=== PATIENT | male | born 1975 | race Caucasian/White ===

== ENCOUNTER 2021-02-26 17:11 | Emergency (ER) | payer MEDICAID ==
[~2021-02-26] VITALS: Ht 177.8 cm; Wt 165.6 kg
[2021-02-26 17:11] VITALS: BP 136/72
--- NOTE | 2021-02-26 17:11 | NUR ---
BIB from home, patient at rest with SVT. Presents cool/clammy/diaphoretic in SVT @ HR 235. Patient given 3 rounds of Adenosine, [id number]-48sd without relief to SVT. EMS reports withholding cardioversion due to BP 131/76. 18G established to L AC. Defibrillator pads applied. EMT at bedside for EKG. 20G established to right AC. gambling monitor in place. IVF NS continued to L AC. PMH: SVT, HTN, PR 2 months ago, DM Meds: metformin, lisinopril NKA
--- NOTE | 2021-02-26 17:11 | NUR ---
Dr. Delaney is evaluating patient at bedside. Crash cart and advanced airway equipment at bedside
--- NOTE | 2021-02-26 17:17 | NUR ---
Rt at bedside, verbal order for 3L by N/C, SpO2 99% unchanged.
[2021-02-26] MEDS ORDERED: INTUBATION KIT MC ONE (17:23)
--- NOTE | 2021-02-26 17:25 | NUR ---
Verbal order for Adenosine 12mg IVP. Admin by 3-way stopcock rapid IVP followed by 10mL NS flush. No change to cardiac rhythm
--- NOTE | 2021-02-26 17:27 | NUR ---
Verbal order to RT to increase oxygen from 3L to 10L by NC. SpO2 99% unchanged.
--- NOTE | 2021-02-26 17:28 | NUR ---
Etomidate 10mg IVP administered.
--- NOTE | 2021-02-26 17:30 | NUR ---
Cardioversion @ 200J by Dr. Delaney
--- NOTE | 2021-02-26 17:31 | NUR ---
Cardiac rhythm showing NSR @ 97. EMT at bedside for repeat EKG
--- NOTE | 2021-02-26 17:36 | NUR ---
1L NS 0.9% by EMS completed
--- NOTE | 2021-02-26 17:36 | NUR ---
Patient awake at this time. A&Ox4, denies any pain.
--- NOTE | 2021-02-26 17:54 | NUR ---
RAD AT BEDSIDE
--- NOTE | 2021-02-26 18:00 | NUR ---
Bena provided. Patient presents without chest pain or SOB at this time. BP 102/63 Spo2 96% on room air HR 107, RR 16
--- NOTE | 2021-02-26 18:05 | NUR ---
Patient resting in high-fowlers in no distress. VSS; respirations even/unlabored. Bed locked in lowest position, side rails x 1, call light in reach.
[2021-02-26 18:08] LABS: BASOPHILS % (AUTO) 0.5 % (0.0-2.0); EOSINOPHILS # (AUTO) 0.5 K/uL (0-0.4); EOSINOPHILS % (AUTO) 5.8 % (0.0-4.0); HEMATOCRIT 45.2 % (36-52); HEMOGLOBIN 15.2 g/dL (12.0-18.0); LYMPHOCYTES # (AUTO) 1.6 K/uL (2.0-11.5); LYMPHOCYTES % (AUTO) 19.7 % (20.5-51.1); MEAN CORPUSCULAR HEMOGLOBIN 29 pg (27-31); MEAN CORPUSCULAR HGB CONC 34 g/dL (33-37); MEAN CORPUSCULAR VOLUME 86.1 fL (80-94); MONOCYTES # (AUTO) 0.8 K/uL (0.8-1.0); MONOCYTES % (AUTO) 9.8 % (1.7-9.3); NEUTROPHILS # (AUTO) 5.3 K/uL (1.8-7.7); NEUTROPHILS % (AUTO) 64.2 % (42.2-75.2); PLATELET COUNT (AUTO) 211 K/uL (140-450); RED BLOOD CELL COUNT(AUTO) 5.25 MIL/uL (4.20-6.10); RED CELL DISTRIBUTION WIDTH 15.9 % (11.6-13.7); WHITE BLOOD COUNT (AUTO) 8.2 K/uL (4.8-10.8)
[2021-02-26 18:27] LABS: ALBUMIN 3.3 g/dL (3.4-5.0); ANION GAP 12.3 (8-16); CARBON DIOXIDE 26.5 mmol/L (21-32); CREATININE 1.2 mg/dL (0.6-1.3); POTASSIUM 3.8 mmol/L (3.5-5.1); TOTAL BILIRUBIN 0.4 mg/dL (0.0-1.0)
[2021-02-26] MEDS ORDERED: METOPROLOL SUCCINATE 50 MG TABER PO SCH (18:40)
[2021-02-26 19:42] VITALS: BP 112/72
--- NOTE | 2021-02-26 19:42 | NUR ---
Patient discharged with v/s stable. Written and verbal after care instructions given and explained. Patient verbalized understanding. Ambulatory with steady gait. All questions addressed prior to discharge. Advised to follow up with PMD. Advised to follow up with transit bus operator.
== END 2021-02-26 19:42 | disposition home or self-care (01) ==
LOC: MED 17:11
DX: R00.0 Tachycardia, unspecified (principal); R61 Generalized hyperhidrosis; E11.9 Type 2 diabetes mellitus without complications; I10 Essential (primary) hypertension; I25.2 Old myocardial infarction; I47.1 Supraventricular tachycardia
CPT/HCPCS: 36415; 71045; 80053; 83880; 84484; 85025; 92950; 93005; 99291; Q0092